=== PATIENT | female | born 1935 | race Asian ===

== ENCOUNTER 2021-10-26 12:30 | Emergency (ER) | payer BC, MEDICARE, OTHER ==
[~2021-10-26] VITALS: Ht 149.9 cm; Wt 47.8 kg
[~2021-10-26 12:30] MED LIST: LIDOcaine 1% W/epiNEPHrine 1:100,000 20ml vial ONE; PRED-531 PO
[2021-10-26 13:04] VITALS: BP 161/77
[2021-10-26] MEDS ORDERED: CEPH250T PO (17:44)
[2021-10-26] MEDS ORDERED: cephalexin 250mg capsule PO ONE (17:50)
== END 2021-10-26 18:07 | disposition home or self-care (01) ==
LOC: ER 12:31
DX: H60.01 Abscess of right external ear (principal); Z79.2 Long term (current) use of antibiotics; Z79.899 Other long term (current) drug therapy
CPT/HCPCS: 69200; 99283; J3490; 10060